=== PATIENT | female | born 1960 | race Caucasian/White ===

== ENCOUNTER 2018-08-06 07:07 | Emergency (ER) | payer BC, SELFPAY ==
[2018-08-06 07:08] VITALS: BP 116/76; PULSE 90; RESP 16; TEMP 37.1; O2SAT 97; BMI 33.4
--- NOTE | 2018-08-06 07:14 | RAD_ITS ---
STUDY: X-RAY - LEFT FOOT CLINICAL: Female, 58 years old. Injury TECHNIQUE: view(s) of the foot. COMPARISON: None. FINDINGS: There is a calcaneal spur. There is a sideplate and cortical screws transfixing the fibula. There is a cortical screw transfixing the distal tibia and fibula. There is mild soft tissue swelling about the ankle. There is a calcific density anterior to the talus on the lateral view measuring 1.5 mm. Normal visualized subtalar, talonavicular, calcaneocuboid, tarsal and tarsometatarsal articulations. Normal metatarsi. Normal metatarsophalangeal joint of the great toe. Normal tibial and fibular sesamoid bones. Normal interphalangeal joint of the great toe. Normal phalanges of the great toe. Normal second through fifth metatarsophalangeal joints. Normal interphalangeal joints and phalanges of the lesser toes. RAD/Foot min 3 Views IMPRESSION: Status post open reduction internal fixation of the distal ankle partially visualized. Mild soft tissue swelling. No visualized evidence of an acute fracture. Nonspecific 1.5 mm calcification overlying the anterior ankle seen only on lateral view which may represent benign soft tissue calcification versus artifact.. Electronically Signed: Aretha Yost MD at 9:00 EDT Tel , Service support ,
--- NOTE | 2018-08-06 07:16 | ED.VISSUMM ---
- ER Visit Summary Date of Service: 08/06/18 Chief Complaint: Left foot injury History of Present Illness: The patient is a 58 F who stepped in a groundhog hole last night injuring her left foot. She does report having prior left foot surgery and believe she still has screws in place. She did take Tylenol earlier this morning. Physical Examination: Vital signs unremarkable. Patient sitting upright in bed no acute distress. Lower extremity examination reveals tenderness of the left midfoot, lateral greater than medial. Minimal edema is noted. There is no tenderness at the ankle or knee. Strong pulses are noted with good cap refill. Sensation is intact. Test Results: Left foot x-rays are obtained. Per my review there is a very small avulsion fracture on the dorsal proximal foot. Emergency Department Course and Treatment: Patient was given naproxen here for pain. She was placed in a walking boot and given crutches. She has an orthopedic doctor near [place] that she wishes to follow-up with. Treatment Plan: [] Disposition: Discharge Impression: Avulsion fracture left foot This note was generated with [employer] dictation software. It may contain incorrect words, spelling, and punctuation that were not noted in review of the chart prior to signing ED Disposition - Plan for ED Patient: Disposition: Home or Assisted Living Instructions: ED Fx Foot Prescriptions: Naproxen [Naprosyn] 500 mg PO BID PRN PRN #20 tablet PRN Reason: Pain Additional Instructions: Follow-up with your orthopedics doctor as discussed.
[2018-08-06] MEDS: Naproxen 500 MG Tablet PO (07:19)
== END 2018-08-06 08:34 | disposition home or self-care (01) ==
PROVIDERS: Emergency Provider Emergency Medicine; Family Provider Student in an Organized Health Care Education/Training Program; PCP Student in an Organized Health Care Education/Training Program
DX: S92.902A Unspecified fracture of left foot, initial encounter for closed fracture (principal); W18.42XA Slipping, tripping and stumbling without falling due to stepping into hole or opening, initial encounter; Y93.9 Activity, unspecified; Y92.9 Unspecified place or not applicable
CPT/HCPCS: 73630; 99284